=== PATIENT | male | born 1990 | race African-American/Black ===

== ENCOUNTER 2025-01-10 19:18 | Emergency (ER) | payer OTHER, MEDICAID ==
[~2025-01-10] VITALS: Ht 193 cm; Wt 171.9 kg
[2025-01-10 19:27] VITALS: TEMP 36.8; O2SAT 96
[2025-01-10] MEDS ORDERED: CYCLOBENZAPRINE 10MG TABLET PO ONE (21:15)
[2025-01-10] MEDS: KETOROLAC 30MG/ML VIAL IM ONE (21:15)
[2025-01-10] MEDS ORDERED: CYCL10TA21 MT (21:24)
[2025-01-10] MEDS ORDERED: NAPR-1176 MT (21:24)
[2025-01-10 22:29] VITALS: BP 118/79; PULSE 77; RESP 16; O2SAT 96
== END 2025-01-10 22:34 | disposition home or self-care (01) ==
LOC: ER 19:18
DX: M54.2 Cervicalgia (principal); M54.50 Low back pain, unspecified; I10 Essential (primary) hypertension; V89.2XXA Person injured in unspecified motor-vehicle accident, traffic, initial encounter; Y92.410 Unspecified street and highway as the place of occurrence of the external cause; Y93.89 Activity, other specified; Y99.8 Other external cause status
CPT/HCPCS: 99283; 96372; J1885